=== PATIENT | male | born 1980 | race Caucasian/White ===

== ENCOUNTER → 2016-12-06 | Outpatient (CLI) | payer MEDICARE ==
[~2016-12-06] MED LIST: ACIDOPHILUS 17175 MG PO; BACTRIM D.S. TAB1 EA PO; DIAMOX 250 MG250 MG PO; DIFLUCAN150 MG PO; DOXYCYCLINE HY100 M2 PO; FEROSUL325 MG PO; GLUCOPHAGE 500500 MG PO; KEFLEX500 MG PO; KLOR-CON 1010 MEQ PO; LASIX40 MG PO; PRILOSEC OTC20 MG PO; VALSARTAN160 MG PO; VITAMIN D5000 UNIT PO; VOLTAREN EC 7575 MG PO
[2016-12-06 12:00] LABS: BUN/CREATININE RATIO 19 (0-10)
== END ==
LOC: LAB 10:32
PROVIDERS: Internal Medicine Pulmonary Disease
DX: I50.30 Unspecified diastolic (congestive) heart failure (principal); J96.10 Chronic respiratory failure, unspecified whether with hypoxia or hypercapnia
CPT/HCPCS: 36415; 36600; 80048; 82803